=== PATIENT | male | born 1965 | race Hispanic/Latino ===

== ENCOUNTER 2017-01-09 20:23 | Observation (INO) | payer BC ==
[2017-01-09 20:30] VITALS: RESP 18
[2017-01-09] MEDS ORDERED: Sodium Chloride 0.9% 1,000 ML IV STA (20:58)
[2017-01-09 21:57] LABS: BASO % 0.3 % (0.0-2.0); EOS % 0.2 % (0.0-4.0); HEMATOCRIT 41.7 % (35.0-51.0); LYMPH # 2.1 K/uL (1.0-4.3); LYMPH % 14.5 % (20.0-40.0); MEAN CELL VOLUME 86.8 fl (80.0-94.0); MEAN CORPUSCULAR HEMOGLOBIN 28.1 pg (27.0-31.0); MEAN CORPUSCULAR HGB CONC 32.4 g/dL (33.0-37.0); MEAN PLATELET VOLUME 8.2 fl (7.2-11.7); MONO # 0.7 K/uL (0.0-0.8); MONO % 4.9 % (0.0-10.0); NEUT # 11.8 K/uL (1.8-7.0); NEUT % 80.1 % (50.0-75.0); NRBC % 0.1 % (0.0-0.0); WHITE BLOOD COUNT 14.8 K/uL (4.8-10.8)
--- NOTE | 2017-01-09 22:13 | ED PDOC ---
Syncope/Near Syncope/Dizzyness Time Seen by Provider: 01/09/17 20:34 Chief Complaint (Nursing): Syncope Chief Complaint (Provider): Syncope History Per: Patient History/Exam Limitations: no limitations Onset/Duration Of Symptoms: Mins (just prior to arrival) Current Symptoms Are (Timing): Better Number Of Syncopal Episodes: 1 Activity At Onset Of Symptoms: Lying Seizure Or Post-ictal Symptoms: None Possible Causative Factor(s): Decreased PO Intake (dehydration), Other ( hypoglycemia/hyperglycemia, cardiac/neurological event) Fall Associated With With Symptoms: Yes, No Injury As Result Of Fall Severity: Moderate Pain Scale Rating Of: 0 Additional History Per: EMS Additional Complaint(s): Sampson Flores is a 51 year old male, with a past medical history of diabetes mellitus, who presents to the emergency department via EMS for the evaluation of a syncopal episode, that the patient experienced just prior to arrival. 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 By the end of the day, he states feeling exhausted. Patient was receiving a lower back massage at his girlfriend's [employer] parlor prior to the syncopal episode. When he flipped over onto his back, he fell over and passed out. Associated cold sweats were present, that have since then resolved. After waking up from his syncopal episode, patient reports 1 episode of diarrhea , inclusive of abdominal cramping. Denies any injury as a result of the fall. EMS states that they gave him a candy bar, which he reports made him feel better. Of note, patient takes Jardiance and 20 units of insulin a night for his diabetes mellitus. No known drug allergies. PMD: Emily Carlson - Risk Factors Risk Factors (Syncope): Neg: H/O Ventricular Arrhythmias, Known Coronary Artery Disease, H/O Severe Valvular Disease, H/O Congenital Heart Disease, Family History Of Sudden , Exertional Syncope Past Medical History Reviewed: Historical Data, Nursing Documentation, Vital Signs Vital Signs: Last Vital Signs Temp 97.9 F 01/09/17 20:27 Pulse 68 01/09/17 20:27 Resp 18 01/09/17 20:27 BP 90/62 L 01/09/17 20:27 Pulse Ox 99 01/09/17 20:27 - Medical History PMH: Diabetes - Surgical History Surgical History: No Surg Hx - Family History Family History: States: No Known Family Hx - Social History Current smoker - smoking cessation education provided: No Ex-Smoker (has not smoked in the last 12 months): No Alcohol: Occasional Drugs: Cannabis - Allergies Allergies/Adverse Reactions: Allergies Allergy/AdvReac Type Severity Reaction Status Date / Time No Known Allergies Allergy Verified 01/09/17 20:30 Review of Systems Constitutional: Positive for: Sweats (cold) Cardiovascular: Negative for: Chest Pain Gastrointestinal: Positive for: Abdominal Pain (lower abdominal cramps), Diarrhea (x1 episode), Other (decreased PO intake) Musculoskeletal: Negative for: Other (pain/injury as result of the fall) Neurological: Positive for: Other (syncope). Negative for: Headache, Dizziness Physical Exam - Reviewed Nursing Documentation Reviewed: Yes Vital Signs Reviewed: Yes - Physical Exam Appears: Positive for: Well, Non-toxic, No Acute Distress Head Exam: Positive for: ATRAUMATIC, NORMOCEPHALIC Skin: Positive for: Normal Color, Warm, Dry Eye Exam: Positive for: Normal appearance, EOMI, PERRL Neck: Positive for: Normal, Painless ROM, Supple Cardiovascular/Chest: Positive for: Regular Rate, Rhythm. Negative for: Murmur Respiratory: Positive for: Normal Breath Sounds. Negative for: Respiratory Distress Gastrointestinal/Abdominal: Positive for: Normal Exam, Soft. Negative for: Tenderness Back: Positive for: Normal Inspection. Negative for: L CVA Tenderness, R CVA Tenderness Extremity: Positive for: Normal ROM. Negative for: Tenderness Neurologic/Psych: Positive for: Alert, Oriented. Negative for: Motor/Sensory Deficits - Laboratory Results Result Diagrams: 01/09/17 21:52 01/09/17 21:52 - ECG O2 Sat by Pulse Oximetry: 99 (RA) Pulse Ox Interpretation: Normal Medical Decision Making Medical Decision Makin:34 Initial Impression: Syncope Differential Diagnoses include, but are not limited to, hypoglycemia, hyperglycemia, dehydration, a cardiac event, or a neurological event. Initial Plan: * CT Head w/o Contrast * EKG * Alcohol Serum * CBC * CMP * Lipase * Troponin I * Urine Drug Screen * Sodium Chloride 0.9% 1,000 ml IV at 1,000 mls/hr * Glucose, Blood, POC * Reevaluation 22:07 Accucheck meter at 277 in the emergency room. Scribe Attestation: Documented by Jonah Camejo, acting as a scribe for Rachael Ackerman MD. Provider Scribe Attestation: All medical record entries made by the Scribe were at my direction and personally dictated by me. I have reviewed the chart and agree that the record accurately reflects my personal performance of the history, physical exam, medical decision making, and the department course for this patient. I have also personally directed, reviewed, and agree with the discharge instructions and disposition. Disposition - Clinical Impression Clinical Impression: Syncope, Syncope and collapse - Patient ED Disposition Is Patient to be Admitted: No Doctor Will See Patient In The: Hospital Counseled Patient/Family Regarding: Diagnosis, Need For Followup - Disposition Disposition: Routine/Home Disposition Time: 23:15 Condition: GOOD
[2017-01-09 22:17] LABS: ALB/GLOB RATIO 1.4 (1.0-2.1); ALCOHOL SERUM < 10 mg/dl (0-10); ALKALINE PHOSPHATASE 71 U/L (38-126); ALT/SGPT 42 U/L (21-72); AST/SGOT 27 U/L (17-59); BILIRUBIN,TOTAL 0.5 mg/dl (0.2-1.3); BLOOD UREA NITROGEN 25 mg/dl (9-20); CALCIUM 9.9 mg/dL (8.4-10.2); CARBON DIOXIDE 25 mmol/L (22-30); CHLORIDE 95 mmol/L (98-107); GFR AFRICAN-AMERICAN 51; GLUCOSE,RANDOM 298 mg/dL (75-110); LIPASE 172 U/L (23-300); POTASSIUM 4.8 MMOL/L (3.6-5.0); SODIUM 136 mmol/l (132-148); TOTAL PROTEIN 8.4 G/DL (6.3-8.2)
--- NOTE | 2017-01-10 08:44 | CT ---
PROCEDURE: CT HEAD WITHOUT CONTRAST. HISTORY: syncope COMPARISON: None available. TECHNIQUE: Axial computed tomography images were obtained through the head/brain without intravenous contrast. Radiation dose: Total exam DLP = 870 mGy-cm. This CT exam was performed using one or more of the following dose reduction techniques: Automated exposure control, adjustment of the mA and/or kV according to patient size, and/or use of iterative reconstruction technique. FINDINGS: HEMORRHAGE: No intracranial hemorrhage. BRAIN: No mass effect or edema. Mild atrophy. Slight prominence of the peripheral sulci.Scattered focal lucencies in the subcortical and periventricular white matter suggestive for chronic microvascular ischemic change. Small focal hypodensity in the left basal ganglia suggestive for prominent perivascular space versus lacunar infarct. VENTRICLES: Mild prominence of the central ventricular system. CALVARIUM: Unremarkable. PARANASAL SINUSES: Unremarkable as visualized. No significant inflammatory changes. MASTOID AIR CELLS: Unremarkable as visualized. No inflammatory changes. OTHER FINDINGS: None. IMPRESSION: No acute intracranial abnormality. Mild atrophy. If focal neurologic deficit persists, consider MRI. These findings were preliminarily reported at 9:37 p.m. on 01/09/[address] Shlomo Pack from [facility].
--- NOTE | 2017-01-10 15:05 | CARD ---
APPROVED REPORT EKG Measurement Heart [id number] <Conclusion> Normal sinus rhythm Normal ECG
[2017-01-10 21:54] VITALS: BP 179/119; PULSE 90; TEMP 98.2; O2SAT 96
--- NOTE | 2017-01-11 06:39 | CP.PCM.HP ---
History of Present Illness - History of Present Illness History of Present Illness: pt wishes to sign self ama prior to being evauated. no complaints. states " feels great" Present on Admission - Present on Admission Any Indicators Present on Admission: No Past Patient History - Past Social History Alcohol: Occasional Drugs: Cannabis - ENDOCRINE/METABOLIC Hx Diabetes Mellitus Type 2: Yes - PSYCHIATRIC Hx Substance Use: No Meds Allergies/Adverse Reactions: Allergies Allergy/AdvReac Type Severity Reaction Status Date / Time No Known Allergies Allergy Verified 01/09/17 20:30 Results - Vital Signs Recent Vital Signs: Last Vital Signs Temp 98.2 F 01/10/17 21:50 Pulse 90 01/10/17 21:50 Resp 18 01/10/17 21:50 BP 179/119 H 01/10/17 21:50 Pulse Ox 96 01/10/17 21:50 - Labs Result Diagrams: 01/09/17 21:52 01/09/17 21:52 Decision To Admit - Pt Status Changed To: Hospital Disposition Of: Observation - . Bed Request Type: Telemetry Admitting Physician: Carlene Mckenna
--- NOTE | 2017-01-11 06:40 | CP.PCM.DIS ---
Provider - Provider Date of Admission: 01/09/17 23:09 Attending physician: Carlene Mckenna MD Time Spent in preparation of Discharge (in minutes): 15 Hospital Course - Lab Results Lab Results: Most Recent Lab Values WBC 14.8 K/uL (4.8-10.8) H 01/09/17 21:52 RBC 4.81 Mil/uL (4.40-5.90) 01/09/17 21:52 Hgb 13.5 g/dL (12.0-18.0) 01/09/17 21:52 Hct 41.7 % (35.0-51.0) 01/09/17 21:52 MCV 86.8 fl (80.0-94.0) 01/09/17 21:52 MCH 28.1 pg (27.0-31.0) 01/09/17 21:52 MCHC 32.4 g/dL (33.0-37.0) L 01/09/17 21:52 RDW 14.0 % (11.5-14.5) 01/09/17 21:52 Plt Count 255 K/uL (130-400) 01/09/17 21:52 MPV 8.2 fl (7.2-11.7) 01/09/17 21:52 Neut % (Auto) 80.1 % (50.0-75.0) H 01/09/17 21:52 Lymph % (Auto) 14.5 % (20.0-40.0) L 01/09/17 21:52 [place] % (Auto) 4.9 % (0.0-10.0) 01/09/17 21:52 Eos % (Auto) 0.2 % (0.0-4.0) 01/09/17 21:52 Baso % (Auto) 0.3 % (0.0-2.0) 01/09/17 21:52 Neut # 11.8 K/uL (1.8-7.0) H 01/09/17 21:52 Lymph # 2.1 K/uL (1.0-4.3) 01/09/17 21:52 [place] # 0.7 K/uL (0.0-0.8) 01/09/17 21:52 Eos # 0.0 K/uL (0.0-0.7) 01/09/17 21:52 Baso # 0.0 K/uL (0.0-0.2) 01/09/17 21:52 Sodium 136 mmol/l (132-148) 01/09/17 21:52 Potassium 4.8 MMOL/L (3.6-5.0) 01/09/17 21:52 Chloride 95 mmol/L (98-107) L 01/09/17 21:52 Carbon Dioxide 25 mmol/L (22-30) 01/09/17 21:52 Anion Gap 21 (10-20) H 01/09/17 21:52 BUN 25 mg/dl (9-20) H 01/09/17 21:52 Creatinine 1.7 mg/dL (0.8-1.5) H 01/09/17 21:52 Est GFR ( Amer) 51 01/09/17 21:52 Est GFR (Non-Af Amer) 42 01/09/17 21:52 Random Glucose 298 mg/dL (75-110) H 01/09/17 21:52 Calcium 9.9 mg/dL (8.4-10.2) 01/09/17 21:52 Total Bilirubin 0.5 mg/dl (0.2-1.3) 01/09/17 21:52 AST 27 U/L (17-59) 01/09/17 21:52 ALT 42 U/L (21-72) 01/09/17 21:52 Alkaline Phosphatase 71 U/L (38-126) 01/09/17 21:52 Troponin I < 0.0120 ng/mL (0.00-0.120) 01/09/17 21:52 Total Protein 8.4 G/DL (6.3-8.2) H 01/09/17 21:52 Albumin 4.9 g/dL (3.5-5.0) 01/09/17 21:52 Globulin 3.5 gm/dL (2.2-3.9) 01/09/17 21:52 Albumin/Globulin Ratio 1.4 (1.0-2.1) 01/09/17 21:52 Lipase 172 U/L (23-300) 01/09/17 21:52 Urine Opiates Screen Negative (NEGATIVE) 01/09/17 21:52 Urine Methadone Screen Negative (NEGATIVE) 01/09/17 21:52 Ur Barbiturates Screen Negative (NEGATIVE) 01/09/17 21:52 Ur Phencyclidine Scrn Negative (NEGATIVE) 01/09/17 21:52 Ur Amphetamines Screen Negative (NEGATIVE) 01/09/17 21:52 U Benzodiazepines Scrn Negative (NEGATIVE) 01/09/17 21:52 U Oth Cocaine Metabols Negative (NEGATIVE) 01/09/17 21:52 U Cannabinoids Screen Positive (NEGATIVE) H 01/09/17 21:52 Alcohol, Quantitative < 10 mg/dl (0-10) 01/09/17 21:52 Discharge Exam - Head Exam Head Exam: ATRAUMATIC, NORMOCEPHALIC Discharge Plan - Follow Up Plan Condition: GOOD Disposition: HOME/ ROUTINE Additional Instructions: f/u immediately w/ rmg final dx abn bw, syncope
== END 2017-01-11 06:39 | disposition home or self-care (01) ==
LOC: H.ER 20:23 → H.ERHOLD 23:09 → H.TEL 01-10 21:43 → H.ERHOLD 01-10 22:21 → H.TEL 01-10 23:18 → H.ERHOLD 01-10 23:49
PROVIDERS: ADMIT Family Medicine; ATTEND Family Medicine
DX: R55 Syncope and collapse (principal); E11.9 Type 2 diabetes mellitus without complications
CPT/HCPCS: 70450; 80053; 83690; 84484; 85025; 93005; 96360; 99283; G0378; G0480; J7040